=== PATIENT | female | born 1990 | race Caucasian/White ===

== ENCOUNTER 2022-10-25 15:45 | Emergency (ER) | payer BC ==
[2022-10-25 16:11] VITALS: TEMP 98.1
[2022-10-25 17:02] LABS: Amorphous Sediment,Urine Occasional /hpf; Appearance,Urine Cloudy (Clear); Bilirubin,Urine Negative (Negative); Blood,Urine Negative (Negative); Color,Urine Yellow; Glucose,Urine (UA) Negative (Negative); Ketones,Urine Trace (Negative); Leukocyte Esterase,Urine Negative (Negative); Mucus,Urine Few /hpf; Nitrite,Urine Negative (Negative); Protein,Urine Trace (Negative); RBC,Urine 1 /hpf (0-5); Specific Gravity,Urine 1.022 (1.001-1.035); Squamous Epithelial Cell,Urine 8 /hpf (0-4); Urobilinogen,Urine <2.0 mg/dL (<2.0); WBC,Urine 2 /hpf (0-5)
[2022-10-25 17:03] LABS: Basophils % (A) 0 %; Eosinophils % (A) 0 %; HGB 12.7 gm/dL (11.4-16.0); Lymphocytes # (A) 0.8 k/uL (1.0-4.8); Lymphocytes % (A) 8 %; MCH 30.4 pg (25.0-35.0); MCHC 34.2 g/dL (31.0-37.0); MCV 88.9 fL (80.0-100.0); Mean Platelet Volume 9.1; Monocytes # (A) 0.3 k/uL (0-1.0); Monocytes % (A) 3 %; Neutrophils # (A) 9.8 k/uL (1.3-7.7); Neutrophils % (A) 88 %; Platelet Count 270 k/uL (150-450); RBC 4.17 m/uL (3.80-5.40); RDW 13.5 % (11.5-15.5); WBC 11.1 k/uL (3.8-10.6)
[2022-10-25 17:13] LABS: ALT 34 U/L (4-34); AST 34 U/L (14-36); African American GFR (CKD) >90 (>60 ml/min/1.73 sqM); Albumin 4.5 g/dL (3.5-5.0); Alkaline Phosphatase 88 U/L (38-126); Anion Gap 9 mmol/L; Blood Urea Nitrogen 4 mg/dL (7-17); Calcium 9.5 mg/dL (8.4-10.2); Carbon Dioxide 25 mmol/L (22-30); Chloride 100 mmol/L (98-107); Glucose 93 mg/dL (74-99); Non-African American GFR(CKD) >90 (>60 ml/min/1.73 sqM); Potassium 4.3 mmol/L (3.5-5.1); Sodium 134 mmol/L (137-145); Total Bilirubin 0.5 mg/dL (0.2-1.3); Total Protein 7.7 g/dL (6.3-8.2)
[2022-10-25] MEDS ORDERED: SODIUM CHLORIDE 0.9% 2,000 ML IV STA (18:49)
[2022-10-25] MEDS ORDERED: diphenhydrAMINE 50 MG/ML 1 ML VIAL IVP STA (18:49)
[2022-10-25] MEDS ORDERED: PYRIDOXINE 100 MG/ML 1 ML VIAL IVP SCH (19:00)
[2022-10-25 19:47] LABS: Basophils % (A) 0 %; Eosinophils % (A) 0 %; HCT 34.6 % (34.0-46.0); HGB 11.9 gm/dL (11.4-16.0); Lymphocytes # (A) 0.9 k/uL (1.0-4.8); Lymphocytes % (A) 9 %; MCH 30.4 pg (25.0-35.0); MCHC 34.4 g/dL (31.0-37.0); MCV 88.5 fL (80.0-100.0); Mean Platelet Volume 8.8; Monocytes # (A) 0.3 k/uL (0-1.0); Monocytes % (A) 3 %; Neutrophils # (A) 8.6 k/uL (1.3-7.7); Neutrophils % (A) 87 %; Platelet Count 253 k/uL (150-450); RBC 3.91 m/uL (3.80-5.40); RDW 13.6 % (11.5-15.5); WBC 9.8 k/uL (3.8-10.6)
[2022-10-25 19:55] LABS: ALT 31 U/L (4-34); AST 29 U/L (14-36); African American GFR (CKD) >90 (>60 ml/min/1.73 sqM); Albumin 4.1 g/dL (3.5-5.0); Alkaline Phosphatase 78 U/L (38-126); Anion Gap 10 mmol/L; Blood Urea Nitrogen 5 mg/dL (7-17); Calcium 9.2 mg/dL (8.4-10.2); Carbon Dioxide 22 mmol/L (22-30); Chloride 102 mmol/L (98-107); Glucose 92 mg/dL (74-99); Lipase 57 U/L (23-300); Non-African American GFR(CKD) >90 (>60 ml/min/1.73 sqM); Potassium 3.9 mmol/L (3.5-5.1); Sodium 134 mmol/L (137-145); Total Bilirubin 0.6 mg/dL (0.2-1.3)
[2022-10-25] MEDS ORDERED: ACETAMINOPHEN IV (For NPO) 1,000 MG in EMPTY BAG 1 BAG IVPB STA ×2 (20:21→20:23)
[2022-10-25] MEDS ORDERED: METOCLOPRAMIDE 5 MG/ML 2 ML VIAL IVP STA (21:36)
--- NOTE | 2022-10-25 22:42 | ED ---
Nausea/Vomiting/Diarrhea HPI - General Chief complaint: Nausea/Vomiting/Diarrhea Stated complaint: Vomiting-11 weeks preg Time Seen by Provider: 10/25/22 18:47 Source: patient Mode of arrival: ambulatory - History of Present Illness Initial comments: Patient is a A1 female 11 weeks ago presents to the emergency department with a chief complaint of nausea and vomiting. Patient states she has had a lot of morning sickness with this for the past 3 days she cannot keep fluids or food down. She denies abdominal pain and vaginal bleeding. She does have history of ectopic . She follows with Dr. Nicolas and has had multiple normal ultrasounds for this . She denies fever, chills, burning with urination, vaginal discharge. Denies upper respiratory symptoms. Does admit to back pain from vomiting consistently. - Related Data Allergies Allergy/AdvReac Type Severity Reaction Status Date / Time No Known Allergies Allergy Verified 10/25/22 16:11 Review of Systems ROS Statement: Those systems with pertinent positive or pertinent negative responses have been documented in the HPI. ROS Other: All systems not noted in ROS Statement are negative. Past Medical History Past Medical History: No Reported History History of Any Multi-Drug Resistant Organisms: None Reported Past Surgical History: No Surgical Hx Reported Past Psychological History: Anxiety, Depression Smoking Status: Never smoker Past Alcohol Use History: None Reported Past Drug Use History: None Reported General Exam General appearance: alert, in no apparent distress Head exam: Present: atraumatic, normocephalic, normal inspection Eye exam: Present: normal appearance, PERRL, EOMI. Absent: scleral icterus, conjunctival injection, periorbital swelling Respiratory exam: Present: normal lung sounds bilaterally. Absent: respiratory distress, wheezes, rales, rhonchi, stridor Cardiovascular Exam: Present: regular rate, normal rhythm, normal heart sounds. Absent: systolic murmur, diastolic murmur, rubs, gallop, clicks GI/Abdominal exam: Present: soft, normal bowel sounds. Absent: distended, tenderness, guarding, rebound, rigid Back exam: Present: normal inspection, full ROM. Absent: CVA tenderness (R), CVA tenderness (L), paraspinal tenderness, vertebral tenderness Neurological exam: Present: alert, oriented X3, CN II-XII intact Psychiatric exam: Present: normal affect, normal mood Skin exam: Present: warm, dry, intact, normal color. Absent: rash Course Vital Signs 10/25/22 10/25/22 10/25/22 16:08 19:38 23:02 Temperature 98.1 F Pulse Rate 103 H 92 86 Respiratory 16 18 16 Rate Blood Pressure 117/71 120/77 111/62 O2 Sat by Pulse 95 100 98 Oximetry Medical Decision Making - Medical Decision Making This is a 32-year-old female presenting with intractable nausea and vomiting. Laboratory studies obtained. There is mild leukocytosis at 11.1. There is mild hyponatremia at 134 which was treated with a large fluid bolus. There is no kidney injury or other electrolyte abnormalities Nausea and vomiting controlled. Patient able to tolerate water and crackers in the emergency department. Patient feeling well after fluid bolus and medicati on. She will be discharged with strict return parameters. We discussed [id number] vitamin B6 and Unisom. Patient to follow up with [facility]. Dr. Burch is my attending. - Lab Data Result diagrams: 10/25/22 19:26 10/25/22 19:26 Lab Results 10/25/22 10/25/22 10/25/22 Range/Units 16:12 16:35 16:35 WBC 11.1 H (3.8-10.6) k/uL RBC 4.17 (3.80-5.40) m/uL Hgb 12.7 (11.4-16.0) gm/dL Hct 37.0 (34.0-46.0) % MCV 88.9 (80.0-100.0) fL MCH 30.4 (25.0-35.0) pg MCHC 34.2 (31.0-37.0) g/dL RDW 13.5 (11.5-15.5) % Plt Count 270 (150-450) k/uL MPV 9.1 Neutrophils % 88 % Lymphocytes % 8 % Monocytes % 3 % Eosinophils % 0 % Basophils % 0 % Neutrophils # 9.8 H (1.3-7.7) k/uL Lymphocytes # 0.8 L (1.0-4.8) k/uL Monocytes # 0.3 (0-1.0) k/uL Eosinophils # 0.0 (0-0.7) k/uL Basophils # 0.0 (0-0.2) k/uL Sodium 134 L (137-145) mmol/L Potassium 4.3 (3.5-5.1) mmol/L Chloride 100 (98-107) mmol/L Carbon Dioxide 25 (22-30) mmol/L Anion Gap 9 mmol/L BUN 4 L (7-17) mg/dL Creatinine 0.61 (0.52-1.04) mg/dL Est GFR (CKD-EPI)AfAm >90 (>60 ml/min/1.73 sqM) Est GFR (CKD-EPI)NonAf >90 (>60 ml/min/1.73 sqM) Glucose 93 (74-99) mg/dL Calcium 9.5 (8.4-10.2) mg/dL Total Bilirubin 0.5 (0.2-1.3) mg/dL AST 34 (14-36) U/L ALT 34 (4-34) U/L Alkaline Phosphatase 88 (38-126) U/L Total Protein 7.7 (6.3-8.2) g/dL Albumin 4.5 (3.5-5.0) g/dL Lipase (23-300) U/L Urine Color Urine Appearance (Clear) Urine pH (5.0-8.0) Ur Specific [place] (1.001-1.035) Urine Protein (Negative) Urine Glucose (UA) (Negative) Urine Ketones (Negative) Urine Blood (Negative) Urine Nitrite (Negative) Urine Bilirubin (Negative) Urine Urobilinogen (<2.0) mg/dL Ur Leukocyte Esterase (Negative) Urine RBC (0-5) /hpf Urine WBC (0-5) /hpf Ur Squamous Epith Cells (0-4) /hpf Amorphous Sediment (None) /hpf Urine Mucus (None) /hpf Influenza Type A (PCR) Not Detected (Not Detectd) Influenza Type B (PCR) Not Detected (Not Detectd) RSV (PCR) Not Detected (Not Detectd) SARS-CoV-2 (PCR) Not Detected (Not Detectd) 10/25/22 10/25/22 10/25/22 Range/Units 16:40 19:26 19:26 WBC 9.8 (3.8-10.6) k/uL RBC 3.91 (3.80-5.40) m/uL Hgb 11.9 (11.4-16.0) gm/dL Hct 34.6 (34.0-46.0) % MCV 88.5 (80.0-100.0) fL MCH 30.4 (25.0-35.0) pg MCHC 34.4 (31.0-37.0) g/dL RDW 13.6 (11.5-15.5) % Plt Count 253 (150-450) k/uL MPV 8.8 Neutrophils % 87 % Lymphocytes % 9 % Monocytes % 3 % Eosinophils % 0 % Basophils % 0 % Neutrophils # 8.6 H (1.3-7.7) k/uL Lymphocytes # 0.9 L (1.0-4.8) k/uL Monocytes # 0.3 (0-1.0) k/uL Eosinophils # 0.0 (0-0.7) k/uL Basophils # 0.0 (0-0.2) k/uL Sodium 134 L (137-145) mmol/L Potassium 3.9 (3.5-5.1) mmol/L Chloride 102 (98-107) mmol/L Carbon Dioxide 22 (22-30) mmol/L Anion Gap 10 mmol/L BUN 5 L (7-17) mg/dL Creatinine 0.66 (0.52-1.04) mg/dL Est GFR (CKD-EPI)AfAm >90 (>60 ml/min/1.73 sqM) Est GFR (CKD-EPI)NonAf >90 (>60 ml/min/1.73 sqM) Glucose 92 (74-99) mg/dL Calcium 9.2 (8.4-10.2) mg/dL Total Bilirubin 0.6 (0.2-1.3) mg/dL AST 29 (14-36) U/L ALT 31 (4-34) U/L Alkaline Phosphatase 78 (38-126) U/L Total Protein 7.0 (6.3-8.2) g/dL Albumin 4.1 (3.5-5.0) g/dL Lipase 57 (23-300) U/L Urine Color Yellow Urine Appearance Cloudy H (Clear) Urine pH 6.0 (5.0-8.0) Ur Specific [place] 1.022 (1.001-1.035) Urine Protein Trace H (Negative) Urine Glucose (UA) Negative (Negative) Urine Ketones Trace H (Negative) Urine Blood Negative (Negative) Urine Nitrite Negative (Negative) Urine Bilirubin Negative (Negative) Urine Urobilinogen <2.0 (<2.0) mg/dL Ur Leukocyte Esterase Negative (Negative) Urine RBC 1 (0-5) /hpf Urine WBC 2 (0-5) /hpf Ur Squamous Epith Cells 8 H (0-4) /hpf Amorphous Sediment Occasional H (None) /hpf Urine Mucus Few H (None) /hpf Influenza Type A (PCR) (Not Detectd) Influenza Type B (PCR) (Not Detectd) RSV (PCR) (Not Detectd) SARS-CoV-2 (PCR) (Not Detectd) Disposition Clinical Impression: Nausea and vomiting in Disposition: HOME SELF-CARE Condition: Good Instructions (If sedation given, give patient instructions): Nausea and Vomiting in (ED) Additional Instructions: Increase fluid intake. Use of [id number] Unisom with vitamin B6 is approved for nausea and vomiting in . Do not drive while taking Unisom as it can make you sleepy. Please follow up with [facility]. Return to the emergency department experience new, concerning, or worsening symptoms. Is patient prescribed a controlled substance at d/c from ED?: No Referrals: Nonstaff,Physician [Primary Care Provider] - 1-2 days Time of Disposition: 22:42
[2022-10-25 23:04] VITALS: BP 111/62; PULSE 86; RESP 16
== END 2022-10-25 23:03 | disposition home or self-care (01) ==
LOC: EC 15:45
DX: O21.9 Vomiting of pregnancy, unspecified (principal); O99.341 Other mental disorders complicating pregnancy, first trimester; O99.511 Diseases of the respiratory system complicating pregnancy, first trimester; F41.9 Anxiety disorder, unspecified; F32.A Depression, unspecified; Z20.822 Contact with and (suspected) exposure to COVID-19; Z3A.11 11 weeks gestation of pregnancy
CPT/HCPCS: 36415; 80053; 83690; 85025; 81001; 87636; 99283; 96365; 96366 ×2; 96375 ×3; J1200; J3415; J2765; J0131; 96361; 96374

== ENCOUNTER → 2022-11-15 | Outpatient (CLI) | payer BC ==
[2022-11-15 14:47] LABS: Glucose 3 Hour, Gest 115 mg/dL
== END | disposition home or self-care (01) ==
LOC: LABWHC1 08:50
PROVIDERS: ATTEND Obstetrics & Gynecology Obstetrics
DX: O99.810 Abnormal glucose complicating pregnancy (principal); Z3A.00 Weeks of gestation of pregnancy not specified
CPT/HCPCS: 36415; 82951; 82952

== ENCOUNTER → 2024-07-23 | Outpatient (CLI) | payer OTHER ==
--- NOTE | 2024-07-23 21:54 | MR ---
EXAMINATION TYPE: MR lumbar spine wo con DATE OF EXAM: 07/23/2024 7:12 PM CLINICAL INDICATION: Female, 33 years old with history of M47.816 SPONDYLOSIS, LUMBAR REGION; PHH, lo w back pain COMPARISON: None TECHNIQUE: Multi planar, multi sequence imaging was performed utilizing: T1-weighted, T2-weighted, a nd turbo inversion recovery imaging of the lumbar spine. IV Contrast: (None if empty) FINDINGS: Alignment: The lumbar vertebral bodies have preserved heights and alignment. Cord: The conus medullaris and the distal spinal cord appear unremarkable with regards to their signa l intensity and morphology. Bones/Discs: Mild degeneration changes throughout the spine with osteophyte formation and facet joint arthropathy. Intervertebral disc signal is maintained. No abnormal inversion recovery signal to sugg est bony edema. T12-L1: No evidence of significant spinal canal stenosis or neural foraminal stenosis. L1-L2: No evidence of significant spinal canal stenosis or neural foraminal stenosis. L2-L3: No evidence of significant spinal canal stenosis or neural foraminal stenosis. L3-L4: No evidence of significant spinal canal stenosis or neural foraminal stenosis. L4-L5: No evidence of significant spinal canal stenosis or neural foraminal stenosis. Trace bilateral facet joint effusions. L5-S1: The disc has a rounded posterior morphology without significant spinal canal stenosis. Facet j oint arthropathy with mild bilateral neural foraminal stenosis. No significant spinal canal or neural foraminal stenosis in the remainder of the visualized levels. Other findings: None. IMPRESSION: 1. No evidence for spondylolysis or spondylolisthesis. No definitive evidence of disc herniation or significant spinal canal stenosis. 2. Minimal disc degeneration with associated osteoarthritic changes.
== END | disposition home or self-care (01) ==
LOC: RADMRIMAIN 19:15
PROVIDERS: ATTEND Orthopaedic Surgery
DX: M47.816 Spondylosis without myelopathy or radiculopathy, lumbar region
CPT/HCPCS: 72148

== ENCOUNTER → 2024-09-05 | Outpatient (CLI) | payer OTHER ==
[2024-09-05 11:41] VITALS: BP 155/92; PULSE 84; RESP 16; TEMP 97.1
--- NOTE | 2024-09-05 13:57 | P.PAINPG ---
PQRS Measure Charge Sheet Comment: HISTORY OF PRESENT ILLNESS: A 34 yr old female as a referral from Dr Jennings presents today w severe and chronic LBP > 1 yr secondary to radiculopathy, spondylosis and facet arthropathy without myelopathy for evaluation. Pt states pain level is provoked at 8 /10 in intensity, constant, localized in the R lower lumbar spine, predominantly axial, sharp in character w occasional shooting pain towards the R hip and RLE. Pain is provoked by over activity. Pain is alleviated by PT x 5 wks which ended in Jul 2024, physician guided home exercises daily since Jul 2024, heat, medications (Neurontin, Ibu), repositioning and rest . PMH: OA, MDD/ Anxiety PSH: Ectopic SH: Negative x3 FH: Non contributory All: See list Meds: See list REVIEW OF ORGAN SYSTEMS: CONSTITUTIONAL: No fevers or chills. No recent weight loss. NEUROLOGICAL: + numbness and tingling along the distal extremities. No seizure disorders or headaches. MUSCULOSKELETAL: + pain PSYCHIATRIC: Denies current depression or suicidal thoughts. Physical Examinations : Constitutional : Cooperative , not in acute distress . Neurologic : Cranial nerve II to XII intact. No focal neurological deficits. Psychiatric : alert & oriented x 3. Matching mood & appropriate affect. Judgment & insight intact. Musculoskeletal : Cervical Spine Motor strength in the deltoid and biceps: Normal right side. Normal Left side Motor strength biceps and the wrist extensors: Normal right side . Normal left side Motor strength in the triceps muscle: Normal right side. Normal left side Deep tendon reflexes: Normal at the biceps. Normal at Brachioradialis. Normal at triceps Vertebral body tenderness to deep palpation over Cervical facet loading test: positive bilaterally Spurling test: positive bilaterally Neck distraction test: positive bilaterally Mona sign: positive bilaterally Lumbar spine Motor strength lower extremities ,thigh and legs 5/5 Right side , 5/5 Left side Deep tendon reflexes : Normal Knee Jerk. Normal Ankle Jerk Vertebral body tenderness over L4 Verde Test positive BL L4-L5 Lumbar facet Loading Test: positive Right / positive Left Range of motion of the lumbar spine Flexion 30 degrees, extension 10 degrees Straight Leg Raise test: Left/ Right positive at degrees Piper test: positive right / positive left. Severe tenderness over the Sacroiliac joint on the Right / Left sides Gaenslen test: positive bilaterally Seated flexion test: positive bilaterally. Sacral spine : Severe tenderness over the Sacroiliac joint: right side / left side Range of motion: Flexion of the lumbar spine <60 degrees Range of motion: Extension of the lumbar spine <20 degrees Gaenslen's Test positive Piper test: positive right side / left side Thigh Thrust Test Sacral Thrust Test Imaging: MRI non contrast lumbar spine from 07/23/24 reviewed Assessment/ Plan : L5-S1 radiculopathy Recommendation of BL TFESI L4-L5 #1. Risks, benefits of procedure discussed and patient verbalized understanding. Admits to anti- coagulant use or medical history of diabetes. Protocol for discontinuation/ continuation of medications nik procedure discussed. All questions answered. I have spent greater than 30 minutes on patient care today. Dr Guan was available by phone for the evaluation of this patient. The time was used to review the medical records including relevant urine studies and Prescription history (MAPs), review of the available imaging, evaluation and examination of the patient, coordination of care with the medical staff and if applicable referring physicians, as well as creation of the medical record Controlled Substance Measures - Controlled Substance Measures Is patient prescribed a controlled substance at discharge?: No
== END ==
LOC: PNWHC3 10:15
PROVIDERS: ATTEND Anesthesiology
DX: M99.63 Osseous and subluxation stenosis of intervertebral foramina of lumbar region (principal); M47.26 Other spondylosis with radiculopathy, lumbar region
CPT/HCPCS: 99211

== ENCOUNTER → 2024-09-06 | Outpatient (CLI) | payer OTHER ==
--- NOTE | 2024-09-06 22:48 | MR ---
EXAMINATION TYPE: MR hip RT wo con DATE OF EXAM: 09/06/2024 COMPARISON: None. 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 Diffusion weighted imaging was performed. FINDINGS: The hip joint surfaces are symmetric and falx within normal limits. Femoral head shapes are maintained bilaterally. Small symmetric joint effusions are identified presumed physiologic. Mildly increased T2 signal of the greater trochanters bilaterally, findings consistent with insertional tend inosis. No serpiginous diminished T1 signal to suggest avascular necrosis in the femoral heads. No shelton spicious increased T2 signal in the visualized femurs bilaterally. No suspicious groin hernia or olimpia opathy is seen bilaterally. Muscle bulk is symmetric and maintained bilaterally. No free fluid in the pelvis. No abnormal bowel dilatation. Anteverted uterus is seen. IMPRESSION: Insertional tendinosis bilaterally at level of greater trochanters. [facility], , 09/06/2024 10:46 PM
== END | disposition home or self-care (01) ==
LOC: RADMRIMAIN 11:15
PROVIDERS: ATTEND Orthopaedic Surgery

== ENCOUNTER 2024-09-24 12:41 | Day surgery (SDC) | payer OTHER ==
[~2024-09-24 12:41] MED LIST: LACTATED RINGERS 1,000 ML IV SCH
[2024-09-24] MEDS ORDERED: IOPAMIDOL M300 15ML VIAL ONE (15:22)
[2024-09-24] MEDS ORDERED: DEXAMETHASONE SOD PHOSPHATE 10 MG/ML 1 ML VIAL ONE (15:22)
[2024-09-24] MEDS ORDERED: ROPIVACAINE 5MG/ML 20ML VIAL ONE (15:22)
[2024-09-24] MEDS: IV FLUID CONTINUATION 1,000 ML IV ONE (15:28)
--- NOTE | 2024-09-24 15:48 | P.PCN ---
Description of Procedure: PREOPERATIVE DIAGNOSIS: 1-Lumbar radiculopathy . 2-lumbar degenerative disc disease. 3-lumbar spondylosis with lumbar facet arthropathy without myelopathy POSTOPERATIVE DIAGNOSIS: 1-lumbar radiculopathy. 2-lumbar degenerative disc disease. 3-lumbar spondylosis with facet arthropathy without myelopathy PROCEDURE 1. Transforaminal epidural steroid injection under fluoroscopic guidance at BILATERAL L4-5 level. (Fluoroscopy images stored on file in the radiology Department ) 2. Lumbar epidurogram . ANESTHESIA: Local with 1% lidocaine 5 ml. subcutaneously. Continuous pulse ox, EKG, blood pressure and verbal communication was maintained with the patient. EBL: Minimal PROCEDURE INDICATION: The patient with low back pain and radiculopathy symptoms unresponsive to conservative treatment. The patient was seen and identified in the preoperative area. Risks, benefits, complications, and alternatives were discussed with the patient. The patient agreed to proceed with the procedure and signed the consent. IV was started, and vital signs were stable. PROCEDURE DESCRIPTION / TECHNIQUE: After getting consent, patient was taken to the OR and time out was completed. The patient was placed in the prone position on procedure table and a pillow was placed under the abdomen to reduce lumbar lordosis. The lumbosacral area w as prepped and draped in the usual sterile fashion. Critical pause was taken. After injecting 5 mL of plain 1% lidocaine subcutaneously, under oblique view of the fluoroscope, a 22-gauge spinal needle was introduced under the tunnel view of the fluoroscope on the RIGHT side and the needle was advanced so that the tip of the needle was at the posterior inferior quadrant of the intervertebral fora men at the lateral view of the fluoroscope and in the lateral third of the facet column in the AP view of the fluoroscope. Negative CSF, negative blood, negative paresthesia. After needle position confirmation by AP and cross table lateral view, 3 mL of Isovue-M 200 contrast was injected under continuous fluoroscope. No contrast was noted in the intrathecal or intravascular space. The epidurogram was noted. Again after repeated negative aspiration 2.5 mL solution was injected which consists 1 mL of normal saline mixed with 1.5 mL of 15 mg dexamethasone. Needle was removed . Same procedure was repeated at the LEFT side at same level , using contrast under continuous fluoroscopy and using same amount of dexamethasone. At the end of the procedure, skin was cleansed, and bandages were applied. DISPOSITION / PLANS: No complication. The patient tolerated the procedure well. The patient was placed in a supine position and transferred to the recovery area in a stable condition for observation. There was no evidence of lower extremity motor or sensory deficit after the procedure. Patient was discharged from the recovery room after meeting discharge criteria. Home discharge instruc tions were given to the patient by the staff. The patient was reexamined prior to discharge.
[2024-09-24 15:51] VITALS: BP 119/76; PULSE 86; RESP 18
--- NOTE | 2024-09-24 16:08 | FL ---
EXAMINATION TYPE: FL guided pain mgmt statistic DATE OF EXAM: 09/24/2024 3:57 PM COMPARISON: Pre Operative Images if available both CT/MRI or plain film CLINICAL INDICATION: Female, 34 years old with history of M54.16; TECHNIQUE: FL guided pain mgmt statistic, multiple fluoroscopic images provided for procedure. Total fluoroscopy time: 70.9 seconds Total submitted images to PACS: 3 DAP: 0.8295 Gycm2 uGym2 cGycm2 or equivalent. FINDINGS: Fluoroscopic images during injection for pain management demonstrate multilevel degeneration changes throughout the spine. No evidence for fracture. No acute process identified. IMPRESSION: 1. No evidence for intraoperative complication. 2. Please see the operative/procedural note for further details. [facility], , 09/24/2024 4:06 PM
== END 2024-09-24 16:07 | disposition home or self-care (01) ==
LOC: ORPAIN 12:41
PROVIDERS: ATTEND Pain Medicine Interventional Pain Medicine
DX: M47.26 Other spondylosis with radiculopathy, lumbar region (principal)
CPT/HCPCS: 81025

== ENCOUNTER → 2024-10-10 | Outpatient (CLI) | payer OTHER ==
[2024-10-10 09:08] VITALS: BP 118/79; PULSE 94; RESP 16
--- NOTE | 2024-10-10 14:18 | P.PAINPG ---
PQRS Measure Charge Sheet Comment: HISTORY OF PRESENT ILLNESS: A 34 yr old female presents today w severe and chronic LBP > 1 yr secondary to radiculopathy, spondylosis and facet arthropathy without myelopathy for evaluation s/p BL TFESI L4-L5 #1. Pt states she experienced 5% pain relief s/p procedure. Pt states pain level is provoked at 10 /10 in intensity, constant, localized in the R lower lumbar spine, predominantly axial, sharp in character w occasional shooting pain towards the BLEs. Pain is provoked by over activity. Pain is alleviated by PT x 5 wks which ended in Jul 2024, physician guided home exercises daily since Jul 2024, heat, medications, repositioning and rest . Interventional procedures include BL TFESI L4-L5 #1 Medications include Neurontin, Flexeril, Ibu REVIEW OF ORGAN SYSTEMS: CONSTITUTIONAL: No fevers or chills. No recent weight loss. NEUROLOGICAL: + numbness and tingling along the distal extremities. No seizure disorders or headaches. MUSCULOSKELETAL: + pain PSYCHIATRIC: Denies current depression or suicidal though ts. Physical Examinations : Constitutional : Cooperative , not in acute distress . Neurologic : Cranial nerve II to XII intact. No focal neurological deficits. Psychiatric : alert & oriented x 3. Matching mood & appropriate affect. Judgment & insight intact. Musculoskeletal : Cervical Spine Motor strength in the deltoid and biceps: Normal right side. Normal Left side Motor strength biceps and the wrist extensors: Normal right side . Normal left side Motor strength in the triceps muscle: Normal right side. Normal left side Deep tendon reflexes: Normal at the biceps. Normal at Brachioradialis. Normal at triceps Vertebral body tenderness to deep palpation over Cervical facet loading test: positive bilaterally Spurling test: positive bilaterally Neck distraction test: positive bilaterally Mona sign: positive bilaterally Lumbar spine Motor strength lower extremities ,thigh and legs 5/5 Right side , 5/5 Left side Deep tendon reflexes : Normal Knee Jerk. Normal Ankle Jerk Vertebral body tenderness over L4 Verde Test positive BL L4-L5 Lumbar facet Loading Test: positive Right / positive Left Range of motion of the lumbar spine Flexion 30 degrees, extension 10 degrees Straight Leg Raise test: Left/ Right positive at degrees Piper test: positive right / positive left. Severe tenderness over the Sacroiliac joint on the Right / Left sides Gaenslen test: positive bilaterally Seated flexion test: positive bilaterally. Sacral spine : Severe tenderness over the Sacroiliac joint: right side / left side Range of motion: Flexion of the lumbar spine <60 degrees Range of motion: Extension of the lumbar spine <20 degrees Gaenslen's Test positive Piper test: positive right side / left side Thigh Thrust Test Sacral Thrust Test Imaging: MRI non contrast lumbar spine from 07/23/24 reviewed Assessment/ Plan : L5-S1 radiculopathy Recommendation of medication management. Ibu 600mg #90, Diclofenac Gel 50gm w 1 RF. Use, side effects, adverse reactions, safe storage discussed. All questions answered. I have spent greater than 30 minutes on patient care today. Dr Guan was available by phone for the evaluation of this patient. The time was used to review the medical records including relevant urine studies and Prescription history (MAPs), review of the available imaging, evaluation and examination of the patient, coordination of care with the medical staff and if applicable referring physicians, as well as creation of the medical record - Pain Location Lower Back Non-Pharmacological Interventions: Heat, Physical Therapy Pharmacological Interventions: Epidural, PRN Medication, Scheduled Medication Home Medications: Ambulatory Orders Cyclobenzaprine [Flexeril] 10 mg PO DAILY 09/05/24 Drospirenone [Slynd] 4 mg PO DAILY 09/05/24 Gabapentin [Neurontin] 300 mg PO TID 09/05/24 Levothyroxine Sodium [Synthroid] 75 mcg PO DAILY 09/05/24 Omeprazole [PriLOSEC] 20 mg PO DAILY 09/05/24 Sertraline [Zoloft] 150 mg PO DAILY 09/05/24 hydrOXYzine HCL [Hydroxyzine HCl] 10 mg PO DAILY 09/05/24 Albuterol Inhaler [Ventolin Hfa Inhaler] 2 inh INHALATION QID PRN 09/20/24 Brexpiprazole [Rexulti] 0.5 mg PO DAILY 09/20/24 Dupilumab [Dupixent Syringe] 300 mg SQ Q14D 09/20/24 Lisdexamfetamine Dimesylate [Vyvanse] 20 mg PO QAM 09/20/24 Diclofenac Sodium Gel [Voltaren 1% Gel] 50 gm TOPICAL BID 30 Days #1 each 10/10/24 Ibuprofen 600 mg PO TID PRN 30 Days #90 tab 10/10/24 Controlled Substance Measures - Controlled Substance Measures Is patient prescribed a controlled substance at discharge?: No
== END ==
LOC: PNWHC3 08:48
PROVIDERS: ATTEND Specialist
DX: M47.26 Other spondylosis with radiculopathy, lumbar region (principal)
CPT/HCPCS: 99211

== ENCOUNTER 2024-10-30 17:03 | Emergency (ER) | payer OTHER ==
[2024-10-30 18:17] VITALS: TEMP 98
[2024-10-30] MEDS: SODIUM CHLORIDE 0.9% 1,000 ML IV STA (19:24)
[2024-10-30] MEDS: MORPHINE SULFATE 4 MG/ML SYRINGE IVP STA ×2 (19:26→22:47)
[2024-10-30] MEDS: KETOROLAC 15 MG/ML 1 ML VIAL IVP STA (19:28)
[2024-10-30] MEDS: ONDANSETRON 4 MG/2 ML VIAL IVP STA (19:29)
[2024-10-30 19:56] LABS: Basophils # (A) 0.1 k/uL (0-0.2); Basophils % (A) 1 %; Eosinophils # (A) 0.2 k/uL (0-0.7); Eosinophils % (A) 2 %; HCT 38.4 % (34.0-46.0); HGB 12.7 gm/dL (11.4-16.0); Lymphocytes # (A) 2.8 k/uL (1.0-4.8); Lymphocytes % (A) 23 %; MCH 28.5 pg (25.0-35.0); MCV 86.5 fL (80.0-100.0); Mean Platelet Volume 8.4; Monocytes # (A) 0.5 k/uL (0-1.0); Monocytes % (A) 4 %; Neutrophils # (A) 8.4 k/uL (1.3-7.7); Neutrophils % (A) 69 %; Platelet Count 298 k/uL (150-450); RBC 4.44 m/uL (3.80-5.40); RDW 14.1 % (11.5-15.5)
[2024-10-30 20:04] LABS: Appearance,Urine Clear (Clear); Bilirubin,Urine Negative (Negative); Blood,Urine Negative (Negative); Color,Urine Colorless; Glucose,Urine (UA) Negative (Negative); Ketones,Urine Negative (Negative); Leukocyte Esterase,Urine Negative (Negative); Nitrite,Urine Negative (Negative); PH, Urine 5.5 (5.0-8.0); Protein,Urine Negative (Negative); Specific Gravity,Urine 1.006 (1.001-1.035); Urobilinogen,Urine <2.0 mg/dL (<2.0)
[2024-10-30 20:05] LABS: Partial Thromboplastin Time 24.7 sec (22.0-30.0); Prothrombin Time 10.8 sec (10.0-12.5)
[2024-10-30 20:08] LABS: ALT 62 U/L (4-34); AST 43 U/L (14-36); African American GFR (CKD) >90 (>60 ml/min/1.73 sqM); Albumin 5.1 g/dL (3.5-5.0); Alkaline Phosphatase 112 U/L (38-126); Amylase 49 U/L (30-110); Anion Gap 9 mmol/L; Blood Urea Nitrogen 9 mg/dL (7-17); Calcium 10.1 mg/dL (8.4-10.2); Carbon Dioxide 26 mmol/L (22-30); Chloride 102 mmol/L (98-107); Glucose 80 mg/dL (74-99); Lipase 74 U/L (23-300); Non-African American GFR(CKD) >90 (>60 ml/min/1.73 sqM); Potassium 4.6 mmol/L (3.5-5.1); Sodium 137 mmol/L (137-145); Total Bilirubin 0.3 mg/dL (0.2-1.3); Total Protein 8.1 g/dL (6.3-8.2)
--- NOTE | 2024-10-30 20:53 | CT ---
EXAMINATION TYPE: CT abdomen pelvis w con DATE OF EXAM: 10/30/2024 8:31 PM COMPARISON: None. CLINICAL INDICATION: Female, 34 years old with history of abdominal pain, Flank pain, Nausea, decreas ed urination. TECHNIQUE: Axial images were obtained from above the diaphragm to the pubic rami in the axial plane a t 5 mm thick sections. Reconstructed images are reviewed on the computer in the coronal plane. CONTRAST: 100 ml mL of Isovue 300. Study performed without Oral Contrast DLP: 2096.6 mGycm, Automated exposure control for dose reduction was used. FINDINGS: Limited CT sections are obtained the lung bases. The lung bases are clear. CT ABDOMEN: Liver: Liver is heterogenous hypodense compatible some mild to moderate fatty infiltration. No discre te masses are evident. Spleen: Normal Pancreas: Normal Adrenal glands: There is a low-density structure on the left adrenal gland measuring 1.1 cm likely an angiomyolipoma. Right adrenal gland appears unremarkable. Gallbladder: Normal Kidneys: No masses are evident. No hydronephrosis is present. No cysts are present. Delayed images were obtained through the kidneys, which remain unremarkable. Aorta: Vascular calcification is within the aorta. Inferior vena cava: Normal. CT PELVIS: Loops of bowel within the abdomen and pelvis are normal. This study is without oral contrast limi ts bowel evaluation. Appendix: Normal as visualized. Urinary bladder: Normal. Genitourinary structures: Uterus appears normal. Adnexa are normal. Osseous structures: No suspicious lytic or sclerotic lesions. IMPRESSION: 1. Mild to moderate fatty infiltration liver. [facility], , 10/30/2024 8:51 PM
--- NOTE | 2024-10-30 22:01 | US ---
EXAMINATION TYPE: US transvaginal DATE OF EXAM: 10/30/2024 COMPARISON: CT today CLINICAL INDICATION: Female, 34 years old with history of eval for torsion; Pt states rt sided pain. Hx rt ectopic. Pt on hormonal control TECHNIQUE: Transvaginal (TV). Transabdominal grayscale sonographic images of the pelvis were acquired. Transvaginal sonographic im ages were medically necessary to better assess the following anatomy: Ovaries Doppler imaging: Color Doppler Images were obtained. Spectral doppler images were obtained. FINDINGS: Date of LMP: 08/08/2022 EXAM MEASUREMENTS: Uterus: 7.8 x 3.0 x 4.3 cm Endometrial Stripe: 0.9 cm Right Ovary: 2.8 x 1.8 x 1.3 cm Left Ovary: 3.1 x 1.8 x 2.1 cm 1. Uterus: Anteverted wnl, prominent vessels seen to the left of the uterus measuring up to 6mm 2. Endometrium: wnl 3. Right Ovary: follicular changes, wnl 4. Left Ovary: follicular changes, largest measuring 1.6 x 1.4 x 1.4cm probable dominant follicle Spectral, color and waveform doppler imaging shows good arterial and venous flow within the ovaries ; there is no evidence for ovarian torsion. 5. Bilateral Adnexa: wnl 6. Posterior cul-de-sac: wnl IMPRESSION: 1. Large vascular structures to the left of the uterus. 2. Multiple follicles greater on the left ovary. [facility], , 10/30/2024 9:58 PM
--- NOTE | 2024-10-30 23:16 | ED ---
General Adult HPI - General Chief complaint: Urogenital Stated complaint: abd pain Time Seen by Provider: 10/30/24 18:55 Source: patient, RN notes reviewed, old records reviewed Mode of arrival: ambulatory Limitations: no limitations - History of Present Illness Initial comments: Patient is a 34-year-old female who presents emergency department complaining of right-sided and flank pain. Has a history of endometriosis, chronic abdominal pain. Has had some decreased urination as well. Symptoms are chronic worsening over the last few months. Has follow-up with her specialist at the end of this week but states she cannot handle the pain. Presents for further evaluation. No nausea or vomiting. No diarrhea or constipation. Does have a history of various laparoscopies as well as right sided ovarian tube removal. Denies chest pain or shortness of breath or fevers. Denies any vaginal discharge or bleeding. Presents for further evaluation at this time. - Related Data Home Medications Medication Instructions Recorded Confirmed Cyclobenzaprine [Flexeril] 10 mg PO DAILY 09/05/24 09/24/24 Drospirenone [Slynd] 4 mg PO DAILY 09/05/24 09/24/24 Gabapentin [Neurontin] 300 mg PO TID 09/05/24 09/24/24 Levothyroxine Sodium [Synthroid] 75 mcg PO DAILY 09/05/24 09/24/24 Omeprazole [PriLOSEC] 20 mg PO DAILY 09/05/24 09/24/24 Sertraline [Zoloft] 150 mg PO DAILY 09/05/24 09/24/24 hydrOXYzine HCL [Hydroxyzine HCl] 10 mg PO DAILY 09/05/24 09/24/24 Albuterol Inhaler [Ventolin Hfa 2 inh INHALATION QID PRN 09/20/24 09/24/24 Inhaler] Brexpiprazole [Rexulti] 0.5 mg PO DAILY 09/20/24 09/24/24 Dupilumab [Dupixent Syringe] 300 mg SQ Q14D 09/20/24 09/20/24 Lisdexamfetamine Dimesylate 20 mg PO QAM 09/20/24 09/24/24 [Vyvanse] Previous Rx's Medication Instructions Recorded Diclofenac Sodium Gel [Voltaren 1% 50 gm TOPICAL BID 30 Days #1 each 10/10/24 Gel] Ibuprofen 600 mg PO TID PRN 30 Days #90 tab 10/10/24 Dicyclomine [Bentyl] 10 mg PO TID PRN 7 Days #21 capsule 10/30/24 Allergies Allergy/AdvReac Type Severity Reaction Status Date / Time No Known Allergies Allergy Verified 10/30/24 18:17 Review of Systems ROS Statement: Those systems with pertinent positive or pertinent negative responses have been documented in the HPI. Review of Systems: CONST: Denies fever EYES: Denies blurry vision ENT: Denies nasal congestion C/V: Denies Chest pain RESP: Denies shortness of breath GI: Endorses abdominal pain : Denies dysuria SKIN: Denies rash. MSK: Denies joint pain. NEURO: Denies headache ROS Other: All systems not noted in ROS Statement are negative. Past Medical History Past Medical History: Asthma, GERD/Reflux, Skin Disorder, Thyroid Disorder Additional Past Medical History / Comment(s): hypothyroidism, sports induced a sthma, eczema History of Any Multi-Drug Resistant Organisms: None Reported Past Surgical History: Section, Orthopedic Surgery Additional Past Surgical History / Comment(s): Rt. knee arthroscopy x 2, laparoscopy x 2 (ectopic, endometriosis), pain procedure- back, robotic surgery for endometriosis Past Anesthesia/Blood Transfusion Reactions: No Reported Reaction Past Psychological History: ADD/ADHD, Anxiety, Depression Smoking Status: Never smoker Past Alcohol Use History: Rare Past Drug Use History: None Reported - Past Family History Mother Family Medical History: Diabetes Mellitus General Exam - General Exam Comments Initial Comments: General: Appears in no acute distress. HEAD: Normal with no signs of head trauma. EYES: PERRLA, EOMI, conjunctiva normal, no discharge. ENT: Hearing grossly intact, normal oropharynx. RESPIRATORY: Clear breath sounds bilaterally. No wheezes, rales, or rhonchi. C/V: Regular rate and rhythm. S1 and S2 auscultated, no edema, peripheral pulses 2+ and intact throughout ABD: Soft, nondistended. No focal tenderness to palpation. EXT: Normal range of motion, no obvious deformity SKIN: No rashes or lesions observed on exposed skin. NEURO: Alert and oriented x 4. Limitations: no limitations Course Vital Signs 10/30/24 18:12 Temperature 98.0 F Pulse Rate 95 Respiratory 17 Rate Blood Pressure 151/88 O2 Sat by Pulse 96 Oximetry Medical Decision Making - Medical Decision Making Was pt. sent in by a medical professional or institution (, PA, FORENSIC ACCOUNTANT, urgent care, hospital, or senior care...) When possible be specific @ -No Did you speak to anyone other than the patient for history (EMS, parent, family, police, friend...)? What history was obtained from this source @ -No Did you review nursing and triage notes (agree or disagree)? Why? @ -I reviewed and agree with nursing and triage notes Were old charts reviewed (outside hosp., previous admission, EMS record, old EKG, old radiological studies, urgent care reports/EKG's, senior care records)? Report findings @ -No old charts were reviewed Differential Diagnosis (chest pain, altered mental status, abdominal pain women, abdominal pain men, vaginal bleeding, weakness, fever, dyspnea, syncope, headache, dizziness, GI bleed, back pain, seizure, CVA, palpatations, mental health, musculoskeletal)? @ -Differential Abdominal Pain Women: Appendicitis, Cholecystitis, diverticulosis, ischemic bowel, pancreatitis, hepatitis, UTI, gastroenteritis, AAA, incarcerated hernia, bowel obstruction, constipation, inflammatory bowel, hepatitis, peptic ulcer disease, splenic i nfarction, perforated viscus, vulvitis, ovarian torsion, PID, kidney stone, placenta abruption, this is not meant to be an all-inclusive list EKG interpreted by me (3pts min.). @ -As above X-rays interpreted by me (1pt min.). @ -None done CT interpreted by me (1pt min.). @ -CT abdomen pelvis reveals no obvious acute intra-abdominal process. U/S interpreted by me (1pt. min.). @ -Ultrasound reveals prominent left-sided blood vessels in the uterus however no other obvious acute process. No concern for torsion. Possible follicle of the left ovary. What testing was considered but not performed or refused? (CT, X-rays, U/S, labs)? Why? @ -None What meds were considered but not given or refused? Why? @ -None Did you discuss the management of the patient with other professionals (herminia nelson i.e. WESLEY Devlin, FORENSIC ACCOUNTANT, lab, RT, psych nurse, social media developer, sweat band separator, teacher, commercial loan collection officer, manager of case)? Give summary @ -No Was smoking cessation discussed for >3mins.? @ -No Was critical care preformed (if so, how long)? @ -No Were there social determinants of health that impacted care today? How? (Homelessness, low income, unemployed, alcoholism, drug addiction, transportation, low edu. Level, literacy, decrease access to med. care, half-way, rehab)? @ -No Was there de-escalation of care discussed even if they declined (Discuss DNR or withdrawal of care, Hospice)? DNR status @ -No What co-morbidities impacted this encounter? (DM, HTN, Smoking, COPD, CAD, Cancer, CVA, ARF, Chemo, Hep., AIDS, mental health diagnosis, sleep apnea, morbid obesity)? @ -Endometriosis Was patient admitted / discharged? Hospital course, mention meds given and route, prescriptions, significant lab abnormalities, going to OR and other pertinent info. @ -Based on the patient's presentation and physical exam, presents emergency department complaining of acute on chronic abdominal pain. Slightly worse than her baseline. Does have a history of endometriosis and abdominal surgeries. We will obtain CT imaging as well as transvaginal ultrasound to evaluate for torsion. She was in agreement this plan. Lab studies will also be obtained. Patient will be administered IV analgesia medications, fluids, nausea meds. EKG showed no signs of acute ischemia. Laboratory studies unremarkable. Imaging also negative for any obvious acute process. Patient does have prominent left-sided blood vessels left of the uterus which she was made aware of but this is a nonspecific finding. Discussed the results with patient. She be discharged home at this time. Has follow-up with her specialist on Monday. Recommended return if any worsening symptoms. Recommended follow-up with that specialist. She was in agreement this plan. I will provide the patient with a prescription for Bentyl. I instructed the patient to follow up with their PCP in the next 1-3 days.. I explained that the patient should return to the emergency department if they experience any worsening symptoms. Strict return precautions were discussed with the patient. The patient expressed understanding of these instructions. I answered all questions that the patient had. The patient was discharged home in good condition with their prescriptions and follow up information. Undiagnosed new problem with uncertain prognosis? @ -No Drug Therapy requiring intensive monitoring for toxicity (Heparin, Nitro, Insulin, Cardizem)? @ -No Were any procedures done? @ -No Diagnosis/symptom? @ -Abdominal pain of unknown etiology Acute, or Chronic, or Acute on Chronic? @ -Acute on chronic Uncomplicated (without systemic symptoms) or Complicated (systemic symptoms)? @ -Complicated Side effects of treatment? @ -No Exacerbation, Progression, or Severe Exacerbation? @ -No Poses a threat to life or bodily function? How? (Chest pain, USA, MD, pneumonia, PE, COPD, DKA, ARF, appy, cholecystitis, CVA, Diverticulitis, Homicidal, Suicidal, threat to staff... and all critical care pts) @ -Unlikely at this time - Lab Data Result diagrams: 10/30/24 19:33 10/30/24 19:33 Lab Results 10/30/24 10/30/24 10/30/24 Range/Units 19:33 19:33 19:33 WBC 12.0 H (3.8-10.6) k/uL RBC 4.44 (3.80-5.40) m/uL Hgb 12.7 (11.4-16.0) gm/dL Hct 38.4 (34.0-46.0) % MCV 86.5 (80.0-100.0) fL MCH 28.5 (25.0-35.0) pg MCHC 33.0 (31.0-37.0) g/dL RDW 14.1 (11.5-15.5) % Plt Count 298 (150-450) k/uL MPV 8.4 Neutrophils % 69 % Lymphocytes % 23 % Monocytes % 4 % Eosinophils % 2 % Basophils % 1 % Neutrophils # 8.4 H (1.3-7.7) k/uL Lymphocytes # 2.8 (1.0-4.8) k/uL Monocytes # 0.5 (0-1.0) k/uL Eosinophils # 0.2 (0-0.7) k/uL Basophils # 0.1 (0-0.2) k/uL PT 10.8 (10.0-12.5) sec INR 1.0 (<1.2) APTT 24.7 (22.0-30.0) sec Sodium 137 (137-145) mmol/L Potassium 4.6 (3.5-5.1) mmol/L Chloride 102 (98-107) mmol/L Carbon Dioxide 26 (22-30) mmol/L Anion Gap 9 mmol/L BUN 9 (7-17) mg/dL Creatinine 0.80 (0.52-1.04) mg/dL Est GFR (CKD-EPI)AfAm >90 (>60 ml/min/1.73 sqM) Est GFR (CKD-EPI)NonAf >90 (>60 ml/min/1.73 sqM) Glucose 80 (74-99) mg/dL Plasma Lactic Acid Grzegorz (0.7-2.0) mmol/L Calcium 10.1 (8.4-10.2) mg/dL Total Bilirubin 0.3 (0.2-1.3) mg/dL AST 43 H (14-36) U/L ALT 62 H (4-34) U/L Alkaline Phosphatase 112 (38-126) U/L Total Protein 8.1 (6.3-8.2) g/dL Albumin 5.1 H (3.5-5.0) g/dL Amylase 49 (30-110) U/L Lipase 74 (23-300) U/L Urine Color Urine Appearance (Clear) Urine pH (5.0-8.0) Ur Specific [place] (1.001-1.035) Urine Protein (Negative) Urine Glucose (UA) (Negative) Urine Ketones (Negative) Urine Blood (Negative) Urine Nitrite (Negative) Urine Bilirubin (Negative) Urine Urobilinogen (<2.0) mg/dL Ur Leukocyte Esterase (Negative) Urine HCG, Qual (Not Detectd) 10/30/24 10/30/24 10/30/24 Range/Units 19:33 19:33 19:33 WBC (3.8-10.6) k/uL RBC (3.80-5.40) m/uL Hgb (11.4-16.0) gm/dL Hct (34.0-46.0) % MCV (80.0-100.0) fL MCH (25.0-35.0) pg MCHC (31.0-37.0) g/dL RDW (11.5-15.5) % Plt Count (150-450) k/uL MPV Neutrophils % % Lymphocytes % % Monocytes % % Eosinophils % % Basophils % % Neutrophils # (1.3-7.7) k/uL Lymphocytes # (1.0-4.8) k/uL Monocytes # (0-1.0) k/uL Eosinophils # (0-0.7) k/uL Basophils # (0-0.2) k/uL PT (10.0-12.5) sec INR (<1.2) APTT (22.0-30.0) sec Sodium (137-145) mmol/L Potassium (3.5-5.1) mmol/L Chloride (98-107) mmol/L Carbon Dioxide (22-30) mmol/L Anion Gap mmol/L BUN (7-17) mg/dL Creatinine (0.52-1.04) mg/dL Est GFR (CKD-EPI)AfAm (>60 ml/min/1.73 sqM) Est GFR (CKD-EPI)NonAf (>60 ml/min/1.73 sqM) Glucose (74-99) mg/dL Plasma Lactic Acid Grzegorz 1.4 (0.7-2.0) mmol/L Calcium (8.4-10.2) mg/dL Total Bilirubin (0.2-1.3) mg/dL AST (14-36) U/L ALT (4-34) U/L Alkaline Phosphatase (38-126) U/L Total Protein (6.3-8.2) g/dL Albumin (3.5-5.0) g/dL Amylase (30-110) U/L Lipase (23-300) U/L Urine Color Colorless Urine Appearance Clear (Clear) Urine pH 5.5 (5.0-8.0) Ur Specific [place] 1.006 (1.001-1.035) Urine Protein Negative (Negative) Urine Glucose (UA) Negative (Negative) Urine Ketones Negative (Negative) Urine Blood Negative (Negative) Urine Nitrite Negative (Negative) Urine Bilirubin Negative (Negative) Urine Urobilinogen <2.0 (<2.0) mg/dL Ur Leukocyte Esterase Negative (Negative) Urine HCG, Qual Not Detected (Not Detectd) - EKG Data -: EKG Interpreted by Me EKG Comments: 12-lead Electrocardiogram Interpretation Note EKG was reviewed and interpreted by myself. 12-lead ECG performed at 2202 is interpreted by me as revealing normal sinus rhythm at a rate of 71 beats per minute. [place] is normal. SC interval is 145 ms, QRS duration is 88 ms, QTc is 415 ms.. There were no ST or T wave abnormalities to suggest myocardial ischemia or injury. R wave progression across the precordium was satisfactory. By my interpretation this EKG is non-diagnostic for acute ischemia. Disposition Clinical Impression: Abdominal pain of unknown etiology Disposition: HOME SELF-CARE Condition: Good Instructions (If sedation given, give patient instructions): Abdominal Pain (ED) Additional Instructions: Follow-up with your specialist on Monday. Return to the emergency department if any worsening symptoms. Prescriptions: Dicyclomine [Bentyl] 10 mg PO TID PRN 7 Days #21 capsule PRN Reason: Pain Is patient prescribed a controlled substance at d/c from ED?: No Referrals: None,Stated [Primary Care Provider] - 1-2 days Forms: Area PCPs Time of Disposition: 23:15
[2024-10-30] MEDS: ACET/COD 300 MG/30 MG STARTER PACK 6 TAB BTL PO STA (23:29)
[2024-10-30 23:34] VITALS: BP 129/81; PULSE 8; RESP 18
== END 2024-10-30 23:34 | disposition home or self-care (01) ==
LOC: EC 17:03
DX: R10.31 Right lower quadrant pain (principal); N80.9 Endometriosis, unspecified
CPT/HCPCS: 36415; 93005; 80053; 82150; 83605; 83690; 85025; 85610; 85730; 81003; 81025; 93975; 76830; 74177; 99284; 96374; 96375 ×2; 96376; 96361 ×4; J2270; J2405; J1885; Q9967

== ENCOUNTER → 2024-11-28 | Outpatient (CLI) | payer OTHER ==
[2024-11-28 11:48] VITALS: BP 131/88; PULSE 75; RESP 18; TEMP 97.5
--- NOTE | 2024-11-28 15:05 | P.PAINPG ---
PQRS Measure Charge Sheet Comment: HISTORY OF PRESENT ILLNESS: A 34 yr old female presents today w severe and chronic LBP > 1 yr secondary to radiculopathy, spondylosis and facet arthropathy without myelopathy for evaluation. Pt states pain level is provoked at 10 /10 in intensity, constant, localized in the R lower lumbar spine, predominantly axial, sharp in character w occasional shooting pain towards the R groin, RLE and R foot. Pain is provoked by over activity. Pain is alleviated by PT x 5 wks which ended in Jul 2024, physician guided home exercises daily since Jul 2024, heat, medications, repositioning and rest . Interventional procedures include BL TFESI L4-L5 x1 Medications include Neurontin, Flexeril, Ibu, Diclofenac Gel REVIEW OF ORGAN SYSTEMS: CONSTITUTIONAL: No fevers or chills. No recent weight loss. NEUROLOGICAL: + numbness and tingling along the distal extremities. No seizure disorders or headaches. MUSCULOSKELETAL: + pain PSYCHIATRIC: Denies current depression or suicidal thoughts. Physical Examinations : Constitutional : Cooperative , not in acute distress . Neurologic : Cranial nerve II to XII intact. No focal neurological deficits. Psychiatric : alert & oriented x 3. Matching mood & appropriate affect. Judgment & insight intact. Musculoskeletal : Cervical Spine Motor strength in the deltoid and biceps: Normal right side. Normal Left side Motor strength biceps and the wrist extensors: Normal right side . Normal left side Motor strength in the triceps muscle: Normal right side. Normal left side Deep tendon reflexes: Normal at the biceps. Normal at Brachioradialis. Normal at triceps Vertebral body tenderness to deep palpation over Cervical facet loading test: positive bilaterally Spurling test: positive bilaterally Neck distraction test: positive bilaterally Mona sign: positive bilaterally Lumbar spine Motor strength lower extremities ,thigh and legs 5/5 Right side , 5/5 Left side Deep tendon reflexes : Normal Knee Jerk. Normal Ankle Jerk Vertebral body tenderness over L5 Verde Test positive R L5- S1 Lumbar facet Loading Test: positive Right / positive Left Range of motion of the lumbar spine Flexion 30 degrees, extension 10 degrees Straight Leg Raise test: Left/ Right positive at degrees Piper test: positive right / positive left. Severe tenderness over the Sacroiliac joint on the Right / Left sides Gaenslen test: positive bilaterally Seated flexion test: positive bilaterally. Sacral spine : Severe tenderness over the Sacroiliac joint: right side / left side Range of motion: Flexion of the lumbar spine <60 degrees Range of motion: Extension of the lumbar spine <20 degrees Gaenslen's Test positive Piper test: positive right side / left side Thigh Thrust Test Sacral Thrust Test Imaging: MRI non contrast lumbar spine from 07/23/24 reviewed Assessment/ Plan : L5-S1 radiculopathy Recommendation of MONICO R paramedian L5-S1 #1. Risks, benefits of procedure discussed and pt verbalized understanding. Protocol for discontinuation/ continuation of medications nik procedure discussed. All questions answered. I have spent greater than 30 minutes on patient care today. Dr Guan was available by phone for the evaluation of this patient. The time was used to review the medical records including relevant urine studies and Prescription history (MAPs), review of the available imaging, evaluation and examination of the patient, coordination of care with the medical staff and if applicable referring physicians, as well as creation of the medical record Home Medications: Ambulatory Orders Cyclobenzaprine [Flexeril] 10 mg PO DAILY 09/05/24 Drospirenone [Slynd] 4 mg PO DAILY 09/05/24 Gabapentin [Neurontin] 300 mg PO TID 09/05/24 Levothyroxine Sodium [Synthroid] 75 mcg PO DAILY 09/05/24 Omeprazole [PriLOSEC] 20 mg PO DAILY 09/05/24 Sertraline [Zoloft] 150 mg PO DAILY 09/05/24 hydrOXYzine HCL [Hydroxyzine HCl] 10 mg PO DAILY 09/05/24 Albuterol Inhaler [Ventolin Hfa Inhaler] 2 inh INHALATION QID PRN 09/20/24 Brexpiprazole [Rexulti] 0.5 mg PO DAILY 09/20/24 Dupilumab [Dupixent Syringe] 300 mg SQ Q14D 09/20/24 Lisdexamfetamine Dimesylate [Vyvanse] 20 mg PO QAM 09/20/24 Diclofenac Sodium Gel [Voltaren 1% Gel] 50 gm TOPICAL BID 30 Days #1 each 10/10/24 Ibuprofen 600 mg PO TID PRN 30 Days #90 tab 10/10/24 Dicyclomine [Bentyl] 10 mg PO TID PRN 7 Days #21 capsule 10/30/24 Controlled Substance Measures - Controlled Substance Measures Is patient prescribed a controlled substance at discharge?: No
== END ==
LOC: PNWHC3 11:13
PROVIDERS: ATTEND Specialist
DX: M54.17 Radiculopathy, lumbosacral region (principal); G89.29 Other chronic pain
CPT/HCPCS: 99211

== ENCOUNTER 2025-01-14 11:16 | Day surgery (SDC) | payer OTHER ==
[2025-01-10 10:03] VITALS: BMI 41.1
[2025-01-14 11:42] VITALS: RESP 16; TEMP 97
[2025-01-14 12:18] LABS: Glucose,Whole Blood 102 mg/dL (70-110)
[2025-01-14] MEDS ORDERED: IOPAMIDOL M200 10 ML VIAL ONE (12:23)
[2025-01-14] MEDS ORDERED: methylPREDNISolone ACETATE 40 MG/ML 1 ML VIAL ONE (12:23)
--- NOTE | 2025-01-14 12:31 | P.PCN ---
Date of Procedure: 01/14/25 Description of Procedure: Diagnosis: Lumbar radiculopathy, and lumbar degenerative disc disease Procedure: Right sided L5-S1 Inter-Laminar Lumbar Epidural Steroid Injection under biplanar fluoroscopy Surgeon: Star Henley Anesthesia: Local: 1% Lidocaine, IV sedation : None. Complications: None Estimated blood loss: None Specimens removed: none. Fluoroscopic image: Saved to patient EMR. Indications for Procedure: The patient has been suffering from lower back pain and leg pain. Inadequate pain control with pharmacologic regimen. Came here for lumbar epidural steroid injection for better pain control. Procedure and Findings: The patient was seen and examined in the holding area. The written informed consent was obtained after explaining the risks, benefits, and alternatives of the procedure to the patient. The patient was brought to the procedure room and was placed in the prone position on the operating room table. A pillow was placed under the abdomen to reduce lumbar lordosis. The anesthesia was started as mentioned above and monitoring was done with noninvasive blood pressure cuff, EKG and pulse oximetry. The skin preparation was done with ChloraPrep and draping was done in usual sterile fashion. Sterile technique was observed throughout the procedure. Under fluoroscopic guidance, the L5-S1 inter-laminar space was identified. 3 ml of 1% Lidocaine was injected with a 25 gauge needle to achieve adequate local anesthesia of the skin and subcutaneous tissue. A 20 gauge, 3.5 inch Tuohy type epidural needle was placed and advanced up to the epidural space using loss of resistance technique and fluoroscopic guidance. No paresthesia was noted. A negative aspiration was confirmed and then 2 ml Isovue was injected. A good dye spread was seen in the epidural space and it was negative for any intrathecal, intraneural or intravascular spread. A total of 6 ml solution containing Depo-Medrol 40 mg and 5 mL of preservative-free Normal Saline was injected slowly with intermittent aspiration. The needle was removed intact, area was cleaned and bandage was applied. Disposition : The patient tolerated the procedure very well. The patient was transferred to the recovery room and remained stable until discharged home. The patient was given detailed discharge instructions for infection, bleeding, headache , leg weekness, and increased pain at the injection site, and was advised to seek immediate medical attention should significant side effects develop. The patient will be followed up with our Pain Clinic within 4 weeks for follow-up visit.
[2025-01-14 12:59] VITALS: BP 117/79; PULSE 77
--- NOTE | 2025-01-14 14:01 | FL ---
Fluoroscopy INDICATION: Pain FINDINGS: Fluoroscopy time: 3.8 seconds. Total dose area product (DAP) in uGy*m?, mGy*cm? (or similar): 0.95520 Images obtained: 3. Images document needle placement towards the lower lumbar spine region IMPRESSION: 1. Documentation of fluoroscopy. [facility], , 01/14/2025 1:59 PM
== END 2025-01-14 13:09 | disposition home or self-care (01) ==
LOC: ORPAIN 11:16
DX: M51.16 Intervertebral disc disorders with radiculopathy, lumbar region (principal); Z79.1 Long term (current) use of non-steroidal anti-inflammatories (NSAID)
CPT/HCPCS: 62323; Q9966; J1010

== ENCOUNTER → 2025-01-29 | Outpatient (CLI) | payer OTHER ==
[2025-01-29 11:19] VITALS: BP 109/75; PULSE 72; RESP 16; TEMP 97.1
--- NOTE | 2025-01-29 15:48 | P.PAINPG ---
PQRS Measure Charge Sheet Comment: HISTORY OF PRESENT ILLNESS: A 34 yr old female presents today w severe and chronic LBP > 1 yr secondary to radiculopathy, spondylosis and facet arthropathy without myelopathy for evaluation s/p MONICO R paramedian L5-S1 #1. Pt states she experienced 60 % pain relief x 2 wks s/p procedure. Pt states pain level is provoked at 7 /10 in intensity, constant, localized in the R lower lumbar spine, predominantly axial, sharp in character w occasional shooting pain towards the R groin, RLE and R foot. Pain is provoked by over activity. Pain is alleviated by PT x 5 wks which ended in Jul 2024, physician guided home exercises daily since Jul 2024, heat, medications, repositioning and rest . Interventional procedures include BL TFESI L4-L5 x1, MONICO R paramedian L5-S1 x1 Medications include Neurontin, Flexeril, Ibu, Diclofenac Gel REVIEW OF ORGAN SYSTEMS: CONSTITUTIONAL: No fevers or chills. No recent weight loss. NEUROLOGICAL: + numbness and tingling along the distal extremities. No seizure disorders or headaches. MUSCULOSKELETAL: + pain PSYCHIATRIC: Denies current depression or suicidal thoughts. Physical Examinations : Constitutional : Cooperative , not in acute distress . Neurologic : Cranial nerve II to XII intact. No focal neurological deficits. Psychiatric : alert & oriented x 3. Matching mood & appropriate affect. Judgment & insight intact. Musculoskeletal : Cervical Spine Motor strength in the deltoid and biceps: Normal right side. Normal Left side Motor strength biceps and the wrist extensors: Normal right side . Normal left side Motor strength in the triceps muscle: Normal right side. Normal left side Deep tendon reflexes: Normal at the biceps. Normal at Brachioradialis. Normal at triceps Vertebral body tenderness to deep palpation over Cervical facet loading test: positive bilaterally Spurling test: positive bilaterally Neck distraction test: positive bilaterally Mona sign: positive bilaterally Lumbar spine Motor strength lower extremities ,thigh and legs 5/5 Right side , 5/5 Left side Deep tendon reflexes : Normal Knee Jerk. Normal Ankle Jerk Vertebral body tenderness over L5 Verde Test positive R L5- S1 Lumbar facet Loading Test: positive Right / positive Left Range of motion of the lumbar spine Flexion 30 degrees, extension 10 degrees Straight Leg Raise test: Left/ Right positive at degrees Piper test: positive right / positive left. Severe tenderness over the Sacroiliac joint on the Right / Left sides Gaenslen test: positive bilaterally Seated flexion test: positive bilaterally. Sacral spine : Severe tenderness over the Sacroiliac joint: right side / left side Range of motion: Flexion of the lumbar spine <60 degrees Range of motion: Extension of the lumbar spine <20 degrees Gaenslen's Test positive Piper test: positive right side / left side Thigh Thrust Test Sacral Thrust Test Imaging: MRI non contrast lumbar spine from 07/23/24 reviewed Assessment/ Plan : L5-S1 radiculopathy Recommendation of R paramedian MONICO L5-S1 #2. Risks, benefits of procedure discussed and pt verbalized understanding. Protocol for discontinuation/ continuation of medications nik procedure discussed. All questions answered. I have spent greater than 30 minutes on patient care today. Dr Guan was available by phone for the evaluation of this patient. The time was used to review the medical records including relevant urine studies and Prescription history (MAPs), review of the available imaging, evaluation and examination of the patient, coordination of care with the medical staff and if applicable referring physicians, as well as creation of the medical record - Pain Location Right Lower Back Non-Pharmacological Interventions: Heat, Ice, Inactivity, Physical Therapy, Position/Reposition, Sitting Pharmacological Interventions: Epidural, PRN Medication PQRS Narrative: Narcotic Agreement Date Signed 11/28/24 Hx Alcohol Use (MH) No Home Medications: Ambulatory Orders Levothyroxine Sodium [Synthroid] 75 mcg PO DAILY 09/05/24 Albuterol Inhaler [Ventolin Hfa Inhaler] 2 inh INHALATION QID PRN 09/20/24 Lisdexamfetamine Dimesylate [Vyvanse] 20 mg PO QAM 09/20/24 ARIPiprazole [Abilify] 10 mg PO DAILY 01/10/25 metFORMIN HCL 500 mg PO DAILY 01/10/25 Omeprazole 20 mg PO ONCE 01/14/25 Controlled Substance Measures - Controlled Substance Measures Is patient prescribed a controlled substance at discharge?: No
== END ==
LOC: PNWHC3 11:04
PROVIDERS: ATTEND Specialist
DX: M54.17 Radiculopathy, lumbosacral region (principal)
CPT/HCPCS: 99211

== ENCOUNTER 2025-02-14 06:42 | Day surgery (SDC) | payer OTHER ==
[2025-02-12 14:35] VITALS: BMI 40.3
[2025-02-14 07:01] VITALS: TEMP 98.2
[2025-02-14 07:14] LABS: Glucose,Whole Blood 115 mg/dL (70-110)
[2025-02-14] MEDS ORDERED: methylPREDNISolone ACETATE 80 MG/ML 1 ML VIAL ONE (08:05)
[2025-02-14] MEDS ORDERED: IOPAMIDOL M300 15ML VIAL ONE (08:05)
--- NOTE | 2025-02-14 08:23 | FL ---
EXAMINATION TYPE: FL guided pain mgmt statistic DATE OF EXAM: 02/14/2025 CLINICAL INDICATION: Female, 34 years old with history of Lumbar Epid Inj; PH[facility], TECHNIQUE: Fluoroscopy. COMPARISON: None. FINDINGS: Fluoroscopic guidance was provided during pain relief procedure performed by Dr. Calero . A total of 11.3 seconds of fluoroscopic time was utilized during the procedure and two spot images ar e acquired. Images acquired shows needle localization at L5 levels with contrast injection. Mild deg enerative changes are present. Total DAP: 0.58624 mGym2. IMPRESSION: As Above. [facility], , 02/14/2025 8:21 AM
--- NOTE | 2025-02-14 08:32 | P.PCN ---
Description of Procedure: PREOPERATIVE DIAGNOSIS: 1- Lumbar Degenerative Disc Diseases 2-Lumbar spondylosis with Facet arthropathy without myelopathy. 3-lumbar spinal stenosis POSTOPERATIVE DIAGNOSIS: 1-lumbar degenerative disc disease. 2-lumbar spondylosis with facet arthropathy without myelopathy. 3-lumbar spinal stenosis. PROCEDURE Injection of radio contrast material into L5-S1 interspace, interpretation of epidurogram, injection of steroid at L5-S1 epidural space under fluoroscopic guidance. ANESTHESIA: Lidocaine 1% subcutaneously. In OR continuous pulse ox, EKG, blood pressure and verbal communication was maintained with the patient. EBL: Minimal PROCEDURE INDICATION: Before the procedure were discussed with the patient detailed procedure, alternatives, complications including infection, bleeding, nerve damage, paralysis all of which could be permanent. Patient understands and all questions were answered. PROCEDURE DESCRIPTION : After getting consent, patient in OR in prone position. Back was prepped with chlorhexidine and draped in sterile fashion. After injecting 10 mL of 1% lidocaine subcutaneously, a 18-gauge Tuohy needle was introduced at L5-S1 interspace right paramedian with loss of resistance technique using a syringe filled with air. Negative CSF, negative blood, negative paresthesia. Needle position was confirmed with AP and lateral view of the fluoroscope. After repeat negative aspiration 2 mL of Omnipaque 200 water soluble contrast was injected. Contrast was noted in the epidural space. No contrast was noted into intrathecal or intravascular space. After repeat negative aspiration 6 mL solution was injected intermittently which consists of 5 mL of preservative-free normal saline mixed with 1 mL of 80 mg Depo-Medrol. Needle was withdrawn intact. Skin was cleansed and Band-Aids was applied. DISPOSITION / PLANS: The patient tolerated the procedure well. No complication. The patient was placed in a supine position and transferred to the recovery area in a stable condition for observation. There was no evidence of lower extremity motor or sensory deficit after the procedure. Patient was discharged from the recovery room after meeting discharge criteria. Home discharge instructions were given to the patient by the staff. The patient was reexamined prior to discharge. The patient will schedule a follow up in the clinic in 2-4 weeks.
[2025-02-14 08:37] VITALS: BP 107/73; PULSE 71; RESP 20
== END 2025-02-14 08:42 | disposition home or self-care (01) ==
LOC: ORPAIN 06:42
PROVIDERS: ATTEND Pain Medicine Interventional Pain Medicine
DX: M48.061 Spinal stenosis, lumbar region without neurogenic claudication (principal); M47.816 Spondylosis without myelopathy or radiculopathy, lumbar region; M51.369 Other intervertebral disc degeneration, lumbar region without mention of lumbar back pain or lower extremity pain
CPT/HCPCS: 62323; Q9967; J1010

== ENCOUNTER → 2025-03-05 | Outpatient (CLI) | payer OTHER ==
[2025-03-05 11:45] VITALS: BP 105/75; PULSE 96; RESP 18; TEMP 97.5
--- NOTE | 2025-03-05 19:07 | P.PAINPG ---
PQRS Measure Charge Sheet Comment: HISTORY OF PRESENT ILLNESS: A 34 yr old female presents today w severe and chronic LBP > 1 yr secondary to radiculopathy, spondylosis and facet arthropathy without myelopathy for evaluation s/p R paramedian MONICO L5-S1 #2. Pt states she experienced 50-60 % pain relief x 2 wks s/p procedure. Referral received from Dr René Nye for BL Hip Dysplasia. Pt states pain level is provoked at 7 /10 in intensity, constant, localized in the BL hips R> L, predominantly axial, sharp in character without shooting pain. Pain is provoked by over activity. Pain is alleviated by PT x 5 wks which ended in Jul 2024, physician guided home exercises daily since Jul 2024, heat, medications, repositioning and rest . Interventional procedures include BL TFESI L4-L5 x1, MONICO R paramedian L5-S1 x2 Medications include Neurontin, Flexeril, Ibu, Diclofenac Gel REVIEW OF ORGAN SYSTEMS: CONSTITUTIONAL: No fevers or chills. No recent weight loss. NEUROLOGICAL: + numbness and tingling along the distal extremities. No seizure disorders or headaches. MUSCULOSKELETAL: + pain PSYCHIATRIC: Denies current depression or suicidal thoughts. Physical Examinations : Constitutional : Cooperative , not in acute distress . Neurologic : Cranial nerve II to XII intact. No focal neurological deficits. Psychiatric : alert & oriented x 3. Matching mood & appropriate affect. Judgment & insight intact. Musculoskeletal : Cervical Spine Motor strength in the deltoid and biceps: Normal right side. Normal Left side Motor strength biceps and the wrist extensors: Normal right side . Normal left side Motor strength in the triceps muscle: Normal right side. Normal left side Deep tendon reflexes: Normal at the biceps. Normal at Brachioradialis. Normal at triceps Vertebral body tenderness to deep palpation over Cervical facet loading test: positive bilaterally Spurling test: positive bilaterally Neck distraction test: positive bilaterally Mona sign: positive bilaterally Lumbar spine +R> L Trendelenburg Motor strength lower extremities ,thigh and legs 5/5 Right side , 5/5 Left side Deep tendon reflexes : Normal Knee Jerk. Normal Ankle Jerk Vertebral body tenderness over L5 Verde Test positive R L5- S1 Lumbar facet Loading Test: positive Right / positive Left Range of motion of the lumbar spine Flexion 30 degrees, extension 10 degrees Straight Leg Raise test: Left/ Right positive at degrees Piper test: positive right / positive left. Severe tenderness over the Sacroiliac joint on the Right / Left sides Gaenslen test: positive bilaterally Seated flexion test: positive bilaterally. Sacral spine : Severe tenderness over the Sacroiliac joint: right side / left side Range of motion: Flexion of the lumbar spine <60 degrees Range of motion: Extension of the lumbar spine <20 degrees Gaenslen's Test positive Piper test: positive right side / left side Thigh Thrust Test Sacral Thrust Test Imaging: MRI non contrast lumbar spine from 07/23/[address] non contrast Pelvis/ Abd from 10/30/24 reviewed Assessment/ Plan : L5-S1 radiculopathy, R> L Hip Dysplasia Recommendation of BL Hip injections #1. Risks, benefits of procedure discussed and pt verbalized understanding. All questions answered. I have spent greater than 30 minutes on patient care today. Dr Guan was available by phone for the evaluation of this patient. The time was used to review the medical records including relevant urine studies and Prescription history (MAPs), review of the available imaging, evaluation and examination of the patient, coordination of care with the medical staff and if applicable referring physicians, as well as creation of the medical record PQRS Narrative: Narcotic Agreement Date Signed 11/28/24 Hx Alcohol Use (MH) No Home Medications: Ambulatory Orders Levothyroxine Sodium [Synthroid] 75 mcg PO DAILY 09/05/24 Albuterol Inhaler [Ventolin Hfa Inhaler] 2 inh INHALATION QID PRN 09/20/24 Lisdexamfetamine Dimesylate [Vyvanse] 20 mg PO QAM 09/20/24 ARIPiprazole [Abilify] 10 mg PO DAILY 01/10/25 metFORMIN HCL 500 mg PO DAILY 01/10/25 Omeprazole 20 mg PO DAILY 01/14/25 Controlled Substance Measures - Controlled Substance Measures Is patient prescribed a controlled substance at discharge?: No
== END ==
LOC: PNWHC3 10:57
PROVIDERS: ATTEND Specialist
DX: M47.27 Other spondylosis with radiculopathy, lumbosacral region (principal); Q65.89 Other specified congenital deformities of hip
CPT/HCPCS: 99211

== ENCOUNTER 2025-03-14 06:01 | Day surgery (SDC) | payer OTHER ==
[2025-03-14] MEDS ORDERED: LACTATED RINGERS 1,000 ML IV SCH (06:19)
[2025-03-14 06:28] LABS: Glucose,Whole Blood 117 mg/dL (70-110)
[2025-03-14 06:29] VITALS: RESP 16; TEMP 97
[2025-03-14] MEDS ORDERED: methylPREDNISolone ACETATE 80 MG/ML 1 ML VIAL ONE (07:15)
[2025-03-14] MEDS ORDERED: ROPIVACAINE 5MG/ML 20ML VIAL ONE (07:15)
[2025-03-14] MEDS ORDERED: IOPAMIDOL M200 10 ML VIAL ONE (07:15)
--- NOTE | 2025-03-14 07:47 | P.PCN ---
Description of Procedure: Procedure diagnosis. Hip joint osteoarthritis. Postprocedure diagnosis. As above. Procedure done. Bilateral hip joint injection with IV contrast, injection of local anesthetic and steroid under fluoroscopic guidance. Anesthesia. Local anesthetic infiltration in the subcutaneous tissue. Continuous pulse ox, EKG, blood pressure and verbal communication was maintained with the patient. Blood loss. None. Indication. Discussed with the patient the procedure alternatives and possible complications which may include infection bleeding nerve damage blood vessel puncture. Patient understands and all questions were answered. Procedure note. After getting consent patient in OR in supine position. Under fluoroscopic guidance, after infiltration of 5 mL of 1% lidocaine subcutaneously, a 22-gauge spinal needle was introduced under tunnel vision of the fluoroscope at the superior lateral part of the neck of the femur near the junction of the head of the femur, right. After needle position information with fluoroscopy, and after negative aspiration 1 cc of Isovue-300 contrast was injected which was noted to be inside the hip joint capsule. After negative aspiration 3 cc solution was injected which consists of 2 cc of 0.5% ropivacaine mixed with 1 cc of 40 mg Depo-Medrol. Spinal needle was taken out and bandage was applied. Exactly same way left side was injected using same amount of contrast and intra- articular solution. Disposition. Patient tolerated the procedure well. No complication from the procedure. Patient was discharged in stable condition from outpatient.
[2025-03-14 07:57] VITALS: BP 109/80; PULSE 89
--- NOTE | 2025-03-14 08:34 | FL ---
EXAMINATION TYPE: FL guided pain mgmt statistic Intraoperative/procedural fluoroscopic services were provided. CLINICAL INDICATION:Female, 34 years old with history of M46.1 LARGE BURSA JOINT INJ BILATERAL; , PHH FINDINGS: Fluoroscopic images demonstrating bilateral hip bursal joint injections. No radiographic evidence for complication. Total fluoroscopy time is 12.5 seconds. DAP: 0.79764 mGym2 Please see the operative/procedural note for further details. [facility], , 03/14/2025 8:32 AM
== END 2025-03-14 08:04 | disposition home or self-care (01) ==
LOC: ORPAIN 06:01
PROVIDERS: ATTEND Pain Medicine Interventional Pain Medicine
DX: M16.0 Bilateral primary osteoarthritis of hip (principal)
CPT/HCPCS: 20610; Q9966; J2795; J1010

== ENCOUNTER 2025-05-02 06:05 | Day surgery (SDC) | payer OTHER ==
[2025-05-02 06:50] VITALS: TEMP 96.9
[2025-05-02 06:56] LABS: Glucose,Whole Blood 91 mg/dL (70-110)
[2025-05-02] MEDS ORDERED: ROPIVACAINE 5 MG/ML 30 ML VIAL ONE (07:55)
[2025-05-02] MEDS ORDERED: methylPREDNISolone ACETATE 80 MG/ML 1 ML VIAL ONE (07:55)
[2025-05-02 08:23] VITALS: RESP 16
--- NOTE | 2025-05-02 08:28 | P.PCN ---
Description of Procedure: Pre operative Diagnosis: Bilateral Trochanteric insertional tendonosis ,bursitis Postprocedure diagnosis: As above. Procedure: Bilateral greater Trochanteric injection under fluoroscopic guidance Anesthesia: Local: 1% Lidocaine . Complications: none Indications for Procedure: Patient had a history of bilateral greater troc hanteric insertional tendonosis bursitis. Tried conservative therapy with minimal response. Came here for intervention procedure. Procedure and Findings: The patient was seen and examined. The written informed consent was obtained after explaining the risks, benefits and alternatives of the procedure to the patient. Patient agreed to proceed for the procedure signed the informed consent. The patient was brought to the procedure room and was placed in lateral position on the operating table. The skin preparation was done with ChloraPrep 1, and draping was done in usual sterile fashion. Sterile technique was observed throughout the procedure. Using fluoroscope in the AP/lateral view, the greater trochanter was identified. The just above of upper margin of the right side greater trochanter was targeted for needle placement. 3 ml of 1% Lidocaine was injected with a 25 gauge needle to achieve adequate local anesthesia of the skin and subcutaneous tissue. then 22 gauge 3.5 inch needle was introduced and advanced into the target area under direct fluoroscopic guidance. A negative aspiration was confirmed. then total of 5ml solution containing depo-medrol 40 mg and 4 ml of 0.5% preservative-free ropivacaine was injected slowly. The needle was removed intact, area was cleaned and bandage was applied. Left side was injected under fluoroscopic guidance exactly the same way using the same amount of solution. The patient tolerated the procedure very well. Additional comments: None Disposition : The patient was transferred to the recovery room and remained sta ble until discharged home. The patient was given detailed discharge instructions for infection, bleeding, increased pain at the injection site, and was advised to seek immediate medical attention should significant side effects develop. Patient was routinely examined by RN before discharging home. The patient will be followed up with Pain Clinic within 3 weeks.
[2025-05-02 08:40] VITALS: BP 134/78; PULSE 73
--- NOTE | 2025-05-02 09:06 | FL ---
EXAMINATION TYPE: FL guided pain mgmt statistic DATE OF EXAM: 05/02/2025 8:21 AM COMPARISON: Pre Operative Images if available both CT/MRI or plain film CLINICAL INDICATION: Female, 34 years old with history of PAIN; TECHNIQUE: FL guided pain mgmt statistic, multiple fluoroscopic images provided for procedure. DAP: 0.81710 mGym2 Gycm2 uGym2 cGycm2 or equivalent. FINDINGS: Fluoroscopic images during injection for pain management demonstrate multilevel degeneration changes throughout the spine. No evidence for fracture. No acute process identified. IMPRESSION: 1. No evidence for intraoperative complication. 2. Please see the operative/procedural note for further details. [facility], , 05/02/2025 9:04 AM
== END 2025-05-02 09:06 | disposition home or self-care (01) ==
LOC: ORPAIN 06:05
PROVIDERS: ATTEND Pain Medicine Interventional Pain Medicine
DX: M70.62 Trochanteric bursitis, left hip (principal); M70.61 Trochanteric bursitis, right hip
CPT/HCPCS: 20610; J2795; J1010

== ENCOUNTER → 2025-05-19 | Outpatient (CLI) | payer OTHER ==
[2025-05-19 11:58] VITALS: BP 106/75; PULSE 71; RESP 16
--- NOTE | 2025-05-19 15:59 | P.PAINPG ---
Objective - Vital Signs Vital signs: Vital Signs Temp Pulse 71 05/19/25 11:50 Resp 16 05/19/25 11:50 BP 106/75 05/19/25 11:50 Pulse Ox 99 05/19/25 11:50 FiO2 Intake & Output 05/18/25 05/19/25 05/19/25 18:59 06:59 18:59 Weight 95.254 kg PQRS Measure Charge Sheet Mode of Arrival: Ambulatory Comment: HISTORY OF PRESENT ILLNESS: A 34 yr old female presents today w severe and chronic LBP > 1 yr secondary to radiculopathy, spondylosis and facet arthropathy without myelopathy, BL Hip DJD for evaluation s/p BL Greater Trochanteric #2. Pt states she experienced 50 % pain relief x 2 wks s/p procedure. Pt states pain level is provoked at 8 /10 in intensity, constant, localized in the R hip, predominantly axial, sharp in character without shooting pain. Pain is provoked by over activity. Pain is al leviated by chiropractic treatments semi monthly since March 2025 which she is currently in, PT x 5 wks which ended in Jul 2024, physician guided home exercises daily since Jul 2024, heat, medications, repositioning and rest . Interventional procedures include BL TFESI L4-L5 x1, MONICO R paramedian L5-S1 x2 , BL Greater Trochanteric x2 (05/14) Medications include Neurontin, Flexeril, Ibu, Diclofenac Gel REVIEW OF ORGAN SYSTEMS: CONSTITUTIONAL: No fevers or chills. No recent weight loss. NEUROLOGICAL: + numbness and tingling along the distal extremities. No seizure disorders or headaches. MUSCULOSKELETAL: + pain PSYCHIATRIC: Denies current depression or suicidal thoughts. Physical Examinations : Constitutional : Cooperative , not in acute distress . Neurologic : Cranial nerve II to XII intact. No focal neurological deficits. Psychiatric : alert & oriented x 3. Matching mood & appropriate affect. Judgment & insight intact. Musculoskeletal : Cervical Spine Motor strength in the deltoid and biceps: Normal right side. Normal Left side Motor strength biceps and the wrist extensors: Normal right side . Normal left side Motor strength in the triceps muscle: Normal right side. Normal left side Deep tendon reflexes: Normal at the biceps. Normal at Brachioradialis. Normal at triceps Vertebral body tenderness to deep palpation over Cervical facet loading test: positive bilaterally Spurling test: positive bilaterally Neck distraction test: positive bilaterally Mona sign: positive bilaterally Lumbar spine +R> L Trendelenburg Motor strength lower extremities ,thigh and legs 5/5 Right side , 5/5 Left side Deep tendon reflexes : Normal Knee Jerk. Normal Ankle Jerk Vertebral body tenderness over L5 Verde Test positive R L5- S1 Lumbar facet Loading Test: positive Right / positive Left Range of motion of the lumbar spine Flexion 30 degrees, extension 10 degrees Straight Leg Raise test: Left/ Right positive at degrees Piper test: positive right / positive left. Severe tenderness over the Sacroiliac joint on the Right / Left sides Gaenslen test: positive bilaterally Seated flexion test: positive bilaterally. Sacral spine : Severe tenderness over the Sacroiliac joint: right side / left side Range of motion: Flexion of the lumbar spine <60 degrees Range of motion: Extension of the lumbar spine <20 degrees Gaenslen's Test positive Piper test: positive right side / left side Thigh Thrust Test Sacral Thrust Test Imaging: MRI non contrast lumbar spine from 07/23/[address] non contrast Pelvis/ Abd from 10/30/24 reviewed Assessment/ Plan : L5-S1 radiculopathy, R> L Hip Dysplasia Recommendation of medication management. [place] 5/325mg #60 w RF. Opiate/ narcotic agreement signed 05/19/25 Use, side effects, adverse reactions, safe storage discussed. All questions answered. I have spent greater than 30 minutes on patient care today. Dr Guan was available by phone for the evaluation of this patient. The time was used to review the medical records including relevant urine studies and Prescription history (MAPs), review of the available imaging, evaluation and examination of the patient, coordination of care with the medical staff and if applicable referring physicians, as well as creation of the medical record - Pain Location Right Hip Non-Pharmacological Interventions: Chiropractic Treatment, Heat, Massage, Physic al Therapy, TENS Unit Pharmacological Interventions: Scheduled Medication PQRS Narrative: Narcotic Agreement Date Signed 11/28/24 Blood Pressure 106/75 Pain Intensity [Right Hip] 8 Scale Used Numeric (1 - 10) Hx Alcohol Use (MH) No Home Medications: Ambulatory Orders Levothyroxine Sodium [Synthroid] 75 mcg PO DAILY 09/05/24 Albuterol Inhaler [Ventolin Hfa Inhaler] 2 inh INHALATION QID PRN 09/20/24 ARIPiprazole [Abilify] 10 mg PO DAILY 01/10/25 Omeprazole 20 mg PO DAILY 01/14/25 Meloxicam [Mobic] 15 mg PO DAILY 03/11/25 Pimozide [Orap] 2 mg PO DAILY 03/11/25 Pravastatin Sodium [Pravachol] 10 mg PO DAILY 03/11/25 Progesterone, Micronized [Prometrium] 100 mg PO HS 03/11/25 Sertraline [Zoloft] 100 mg PO DAILY 03/11/25 Tirzepatide [Mounjaro] 7.5 mg SQ MO 03/11/25 hydrOXYzine HCL [Hydroxyzine HCl] 25 mg PO DIRECTED PRN 03/11/25 buPROPion XL [Wellbutrin XL] 150 mg PO DAILY 04/30/25 HYDROcodone/APAP 5-325MG [[place] 5-325] 1 tab PO BID PRN 30 Days #60 tab 05/19/25 HYDROcodone/APAP 5-325MG [[place] 5-325] 1 tab PO BID PRN 30 Days #60 tab 05/19/25 Controlled Substance Measures - Controlled Substance Measures Is patient prescribed a controlled substance at discharge?: Yes When asked, does pt state using other controlled substances?: Yes If prescribed controlled substance>3 days was MAPS reviewed?: Yes If Rx opioid, was Start Talking consent form obtained?: Yes Was information provided regarding opioid addiction?: Yes
== END ==
LOC: PNWHC3 11:00
PROVIDERS: ATTEND Specialist
DX: M47.27 Other spondylosis with radiculopathy, lumbosacral region (principal); Q65.89 Other specified congenital deformities of hip
CPT/HCPCS: 99211